=== PATIENT | female | born 1970 | race Caucasian/White ===

== ENCOUNTER 2017-11-11 09:16 | Day surgery (SDC) | payer OTHER ==
[~2017-11-11 09:16] MED LIST: Buffered Lidocaine 0.9% SYRIN* 5 ML/SYR SYRINGE INTRADERM ONE; Dexamethasone IV* 4 MG/ML 1 ML (4 MG) IV SLOW PU ONE; Famotidine IV* 10 MG/ML 2 ML (20 mg) IV ONE
[2017-11-11] MEDS ORDERED: Dexamethasone IV* 4 MG/ML 1 ML (4 MG) ONE (09:28)
[2017-11-11] MEDS ORDERED: ceFAZolin 2 GM PREMIX (*) 2 GM/50 ML BAG IVPB ONE (09:28)
[2017-11-11] MEDS ORDERED: Famotidine IV* 10 MG/ML 2 ML (20 mg) ONE (09:28)
[2017-11-11] MEDS ORDERED: DiMENhydriNATE IV* 50 MG/ML VIAL IV PUSH PRN (10:27)
[2017-11-11] MEDS ORDERED: oxyCODONE/Acetamin 5/325 MG* TAB PO PRN (10:27)
[2017-11-11] MEDS ORDERED: fentaNYL* 50 MCG/ML 2 ML VIAL (100 MCG VIAL) IV PRN (10:27)
[2017-11-11] MEDS ORDERED: Ondansetron INJ* 2 MG/ML VIAL IV PRN (10:27)
[2017-11-11] MEDS ORDERED: Naloxone* 0.4 MG/ML 1 ML VIAL IV PRN (10:27)
[2017-11-11] MEDS ORDERED: fentaNYL* 50 MCG/ML 2 ML VIAL (100 MCG VIAL) ONE (10:30)
[2017-11-11] MEDS ORDERED: Midazolam* 1 MG/ML 5 ML VIAL (5 MG) ONE (10:30)
[2017-11-11] MEDS ORDERED: Propofol* 10 MG/ML 20 ML BTL IV PUSH ONE (10:31)
[2017-11-11] MEDS ORDERED: Ketorolac INJ* 30 MG/ML 1 ML VIAL ONE (10:31)
[2017-11-11] MEDS ORDERED: Ondansetron INJ* 2 MG/ML VIAL ONE (10:31)
[2017-11-11] MEDS ORDERED: Lidocaine 2% PF * 5 ML VIAL ONE (10:50)
[2017-11-11] MEDS ORDERED: Lidocaine 2% PF* 10 ML AMP ONE (11:04)
[2017-11-11 13:00] VITALS: BP 111/74
--- NOTE | 2017-11-12 07:54 | RAD ---
INDICATION: Right foot excision of fracture fragments third fourth and fifth proximal phalanges. COMPARISON: Comparison is made with a prior x-ray study of the right foot from May 23, 2017. TECHNIQUE: 1.2 seconds of intermittent fluoroscopic guidance were provided and a single spot film of the right foot was obtained in the operating room. FINDINGS: There are small fracture fragments visualized at the bases of the fourth and fifth proximal phalanges and surgical screws which project along the medial bases of the third, fourth and fifth proximal phalanges. IMPRESSION: INTRAOPERATIVE CONTROL FILMS. CPT II Codes: 6045F
--- NOTE | 2017-11-12 15:18 | OP ---
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 OPERATIVE PROCEDURE: Open reduction and internal fixation left third and fourth proximal phalangeal condyle and collateral ligament repair, fifth MTP joint. DESCRIPTION OF PROCEDURE: The patient was taken to the operating room where ankle Esmarch was applied. We made longitudinal incision over the dorsum of the fifth, then fourth, then third MTP joints, incising down directly on the medial border of the extensor tendons, we opened up the medial capsule and inspected the base of the fifth proximal phalanx medial side. There was a very small fracture fragment and some scar tissue was excised with a 15 blade. We advanced the remaining collateral ligament up to the medial aspect of the proximal base using a Micro Mitek, basically a 4-0 Vicryl suture. We drilled the anchor into the base of the medial proximal phalanx and then brought both sutures to the collateral ligament tying them with the toe in the neutral position. We then examined the fourth and third MTP joints by approaching the base of the proximal phalanx through a medial peritendon incision. Both fourth and third proximal phalangeal fracture fragments were easily visualized by inspecting inside the joint to see the fracture line. They were both relatively anatomically reduced and were not grossly unstable, so rather than take down the fragments, we just pinned them with 1.5 mm cortical screws, thus anchoring them and allowing for the bone healing if needed. We then irrigated all 3 wounds closing with 3-0 Vicryl and 4-0 nylon and a compression dressing was applied. [id number]/[facility] #: [id number] ROMY
== END 2017-11-11 13:19 | disposition home or self-care (01) ==
LOC: OR 09:16
PROVIDERS: ATTEND Orthopaedic Surgery
DX: S92.511D Displaced fracture of proximal phalanx of right lesser toe(s), subsequent encounter for fracture with routine healing (principal); M54.9 Dorsalgia, unspecified; F41.8 Other specified anxiety disorders; X58.XXXD Exposure to other specified factors, subsequent encounter
CPT/HCPCS: 76000; C1713; J0690; J1100; J1885; J2001; J2250; J2405; J2704; J3010

== ENCOUNTER 2018-10-09 12:55 | Emergency (ER) | payer OTHER ==
[2018-10-09 14:20] VITALS: BP 109/63
--- NOTE | 2018-10-09 14:46 | UC ---
Throat Pain/Nasal Ramirez HPI - HPI Summary HPI Summary: cough, chest congestion x6 days w/ no sob or wheezing. pt just got back from [place] on 09/13. nothing makes it better/worse. - History of Current Complaint Chief Complaint: UCGeneralIllness Stated Complaint: CONGESTION,COUGH Time Seen by Provider: 10/09/18 14:24 Hx Obtained From: Patient Hx Last Menstrual Period: 08/21/2013 Onset/Duration: Gradual Onset Pain Intensity: 0 Associated Signs & Symptoms: Negative: Wheezing, Fever, Rash - Allergies/Home Medications Allergies/Adverse Reactions: Allergies Allergy/AdvReac Type Severity Reaction Status Date / Time latex Allergy Rash Verified 11/11/17 09:41 oxycodone AdvReac Fatigue Verified 10/09/18 14:12 PMH/Surg Hx/FS Hx/Imm Hx Previously Healthy: Yes - Surgical History Surgical History: Yes Surgery Procedure, Year, and Place: ,2007. LUMP ON BREAST REMOVED ( FATTY TISSUE),2008. CERVICAL DYSPLASIA,1995. Endometrial Ablation 08/27/13. LASIX EYE SURG 2012. toe surgery x3 2018 - Social History Alcohol Use: Daily Alcohol Amount: "a couple glasses per day" Substance Use Type: None Smoking Status (MU): Former Smoker Amount Used/How Often: pack a day for 5 yrs When Did the Patient Quit Smoking/Using Tobacco: 20 yrs - Immunization History Most Recent Influenza Vaccination: [id number] season Review of Systems All Other Systems Reviewed And Are Negative: Yes Constitutional: Positive: Negative. Negative: Fever Skin: Negative: Rash ENT: Positive: Nasal Discharge, Sinus Congestion, Sinus Pain/Tenderness. Negative: Sore Throat, Ear Ache Respiratory: Positive: Cough. Negative: Shortness Of Breath Cardiovascular: Positive: Negative Musculoskeletal: Negative: Myalgia Neurological: Negative: Headache Physical Exam Triage Information Reviewed: Yes Appearance: Well-Appearing Vital Signs: Initial Vital Signs Temp 97.8 F 10/09/18 14:13 Pulse 70 10/09/18 14:13 Resp 16 10/09/18 14:13 BP 109/63 10/09/18 14:13 Pulse Ox 100 10/09/18 14:13 Vital Signs Reviewed: Yes Eyes: Positive: Conjunctiva Clear ENT: Positive: Pharynx normal, Nasal congestion, TMs normal, Uvula midline Neck exam: Normal Respiratory Exam: Normal Neurological: Positive: Alert Skin: Negative: Rashes Throat Pain/Nasal Course/Dx - Course Assessment/Plan: Acute symptoms of URI and thought to be viral. Good vitals and exam essentially unremarkable. I explained to pt this was likely viral and she requested antibx. We discussed that these are ineffective and come with side effects, she verbalized understanding. - Differential Dx/Diagnosis Differential Diagnosis/HQI/PQRI: Pharyngitis, Sinusitis, URI Provider Diagnosis: Bronchitis Discharge - Sign-Out/Discharge Documenting (check all that apply): Patient Departure All imaging exams completed and their final reports reviewed: No Studies - Discharge Plan Condition: Good Disposition: HOME Prescriptions: Azithromycin TAB* [Zithromax TAB (Z-KARMA) 250 mg #6 tabs] 2 tab PO .TODAY, THEN 1 DAILY #1 karma Patient Education Materials: Acute Bronchitis (ED) Referrals: Beverly Asencio MD [Primary Care Provider] - Additional Instructions: If do not think you have a bacterial illness but I understand you wanted to do a trial of antibiotics. If this does not help it may mean it was a viral illness for which we use supportive care for treatment. - Billing Disposition and Condition Condition: GOOD Disposition: Home
== END 2018-10-09 14:54 | disposition home or self-care (01) ==
LOC: UCEAST 12:55
DX: J40 Bronchitis, not specified as acute or chronic (principal); Z87.891 Personal history of nicotine dependence; Z91.040 Latex allergy status; Z88.5 Allergy status to narcotic agent
CPT/HCPCS: 99212; G0463